=== PATIENT | male | born 1940 | race Caucasian/White ===

== ENCOUNTER 2016-06-22 15:17 | Emergency (ER) | payer MEDICARE, BC ==
[~2016-06-22] VITALS: Ht 175.3 cm; Wt 63.5 kg
[2016-06-22] MEDS ORDERED: TdaP Vaccine 0.5ml Syr IM ONE (15:45)
[2016-06-22 16:01] VITALS: BP 128/76
[2016-06-22] MEDS ORDERED: AUGMENTIN 875-1 EAC1 ORAL (16:30)
[2016-06-22] MEDS ORDERED: Bacitracin Oint UD TOPIC ONE (17:00)
[2016-06-22] MEDS ORDERED: Surgicel 4in x 8in TOPIC ONE (17:15)
[2016-06-22 17:28] VITALS: BP 132/78
--- NOTE | 2016-06-22 19:17 | Emergency Room Report ---
History of Present Illness General Chief Complaint: Animal Bite Present Illness HPI 76-year-old male presents emergency department complaining of dog bite to the Right middle finger x40 minutes. Patient states he did not know the dog however support services specialist stated the animal is up to date with vaccinations. Patient states that he is currently bleeding as he takes Xarelto for recent DVT. PT does not know when his last tetanus vaccination was. denies pain at this time. Denies numbness tingling or loss of sensation or gross motor movements of the extremities, incontinence of bowel or bladder. Denies CP, Palpitations, LOC, AMS , dizziness, Changes in Vision, Sensation, paresthesias, or a sudden severe headache. (Melissa Ayala P.A.) Allergies: Coded Allergies: No Known Allergies (Unverified , 06/22/16) Patient History Past Medical History: see triage record Past Surgical History: none Pertinent Family History: none Reviewed Nursing Documentation: PMH: Agreed, PSxH: Agreed (Melissa Ayala P.Tran) Nursing Documentation-PMH Past Medical History: No History, Except For Hx Cardiac Problems: Yes - dvt Hx Gastrointestinal Problems: Yes - diverticulitis with perforated colon, colonectomy (Melissa Ayala P.A.) Physical Exam Vital Signs Date Time Temp Pulse Resp B/P Pulse Ox O2 Delivery O2 Flow Rate FiO2 06/22/16 15:32 97.0 81 18 128/76 98 Room Air Sp02 EP Interpretation: reviewed, normal General Appearance: no apparent distress, alert, GCS 15, non-toxic Head: normocephalic, atraumatic Eyes: bilateral eye PERRL, bilateral eye normal inspection ENT: hearing grossly normal, normal pharynx, no angioedema, normal voice Neck: full range of motion, supple/symm/no masses Respiratory: lungs clear, normal breath sounds, speaking full sentences Cardiovascular #1: regular rate, rhythm, no edema Cardiovascular #2: 2+ radial (R), 2+ radial (L) Musculoskeletal: back normal, gait/station normal, normal range of motion, non- tender Neurologic: alert, oriented x3, responsive, motor strength/tone normal, sensory intact, speech normal Psychiatric: judgement/insight normal, memory normal, mood/affect normal Skin: normal color, no rash, warm/dry, well hydrated, other - avulsion to the right middle finger approximately 3mm in size no evidence of fb, or infeciton at this time. Lymphatic: no adenopathy (Melissa Ayala) Medical Decision Making PA Attestation Dr. gallardo is my supervising Physician whom patient management has been discussed with. (Melissa Ayaal) Medicare Attestation The history of Nikolas Scott has been reviewed and management options for him have been examined and discussed by Vance Arreaga. I have personally examined and interviewed the patient. (VANCE ARREAGA M.D.) Diagnostic Impression: Primary Impression: Bite by animal Additional Impression: Anticoagulated ER Course 76-year-old male presents emergency department complaining of dog bite to the left middle finger x40 minutes. Patient states he did not know the dog however support services specialist stated the animal is up to date with vaccinations. Patient states that he is currently bleeding as he takes Xarelto for recent DVT. PT does not know when his last tetanus vaccination was. denies pain at this time. ---tetanus not up to date, rabies on animal is UTD Ddx considered but are not limited to Cellulitis, rabies, fracture, neurovascular compromise of extremity. Vital signs: are WNL, pt. is afebrile H&PE are most consistent with dog bite no infection noted, bleeding continues. ORDERS: none required at this time, the diagnosis is clinical ED INTERVENTIONS: -Tetanus vaccination is administered. -- Wound irrigation is performed by RN. - direct pressure to the wound for 10 minutes, wound continues to minimally bleed. - Surgicel was applied to achieve hemostasis - sterile dressing applied by data power consultant - Finger Splint applied by sonography technician. Pt. remains neurovascularly intact. DISCHARGE: At this time pt. is stable for d/c to home. Will provide printed patient care instructions, and any necessary prescriptions. Care plan and follow up instructions have been discussed with the patient prior to discharge. * Augmentin BID x 10 days. (Melissa Ayala) Last Vital Signs Date Time Temp Pulse Resp B/P Pulse Ox O2 Delivery O2 Flow Rate FiO2 06/22/16 17:28 97.0 90 14 132/78 98 Room Air (Melissa Ayala) Disposition: HOME, SELF-CARE Condition: Stable Scripts Amoxicillin/Potassium Clav 875-125* (AUGMENTIN 875-125 TABLET*) 1 Each Tablet 1 TAB ORAL TWICE A DAY for 10 Days, #20 TAB Prov: Melissa Ayala 06/22/16 Referrals: NON PHYSICIAN (PCP) Patient Instructions: Animal Bite Additional Instructions: Take medications as directed. Follow up with PCP in 3-5 days Return sooner to ED if new symptoms occur, or current symptoms become worse. - Please note that this Emergency Department Report was dictated using [employer] signal supervisor maintenance technology software, occasionally this can lead to erroneous entry secondary to interpretation by the dictation equipment. Melissa Ayala Jun 22, 2016 19:17 VANCE ARREAGA M.D. Jun 24, 2016 08:26
== END 2016-06-22 17:28 | disposition home or self-care (01) ==
LOC: EMR 16:33
DX: S61.252A Open bite of right middle finger without damage to nail, initial encounter (principal); Z23 Encounter for immunization; W54.0XXA Bitten by dog, initial encounter; Y93.89 Activity, other specified; Y92.9 Unspecified place or not applicable; Z86.718 Personal history of other venous thrombosis and embolism
CPT/HCPCS: 29280; 90471; 90715; 96372; 99283